=== PATIENT | male | born 1935 | race Caucasian/White ===

== ENCOUNTER 2017-08-19 18:14 | Emergency (ER) | payer BC, OTHER ==
[~2017-08-19] VITALS: Ht 185.4 cm; Wt 79.4 kg
[~2017-08-19 18:14] MED LIST: MULT-2410
[2017-08-19 18:18] VITALS: BP 187/90
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
--- NOTE | 2017-08-19 18:35 | NUR ---
X RAY AT BEDSIDE
--- NOTE | 2017-08-19 19:15 | NUR ---
Pt report given to NYLA NEWTON. Transfer of care at this time.
--- NOTE | 2017-08-19 19:16 | NUR ---
REPORT RECEIVED FROM NYLA CAMPBELL
[2017-08-19] MEDS ORDERED: MORPHINE SULFATE 5 MG/ML VIAL IVP ONE (19:35)
[2017-08-19] MEDS ORDERED: ONDANSETRON 4 MG/2 ML VIAL IVP ONE ×2 (19:35→21:20)
--- NOTE | 2017-08-19 20:39 | NUR ---
CALLED [facility] [phone] REGARDING TRANSFER AND TALKED TO NYLA ARRIAGA
--- NOTE | 2017-08-19 20:55 | NUR ---
PT C/O MILD N/V V.O. ZOFRAN 4MG IVP GIVEN-NADR AT THIS TIME
--- NOTE | 2017-08-19 21:15 | NUR ---
Patient to be transferred to [facility]. Is being transferred due to CONTINUATION OF CARE. Receiving facility has accepting physician and available space. ER physician has signed transfer form. Patient or responsible alliance party has agreed to transfer and signed form. Patient belongings inventoried and will be sent with patient. Copy of nursing notes, lab reports, EKG, Physicians Orders and X-rays to be sent with patient. Report called to LIZA at receiving facility. [facility] ambulance service has been called for transfer. ETA is NOW.
[2017-08-19 21:18] VITALS: BP 113/65
== END 2017-08-19 21:18 | disposition short-term general hospital (02) ==
LOC: MED 18:14
DX: S82.251A Displaced comminuted fracture of shaft of right tibia, initial encounter for closed fracture (principal); S82.451A Displaced comminuted fracture of shaft of right fibula, initial encounter for closed fracture; Z79.899 Other long term (current) drug therapy; V87.8XXA Person injured in other specified noncollision transport accidents involving motor vehicle (traffic), initial encounter; Y93.55 Activity, bike riding; Y92.89 Other specified places as the place of occurrence of the external cause; Y99.8 Other external cause status
CPT/HCPCS: 29505; 73610; 96374; 96375; 96376; 99284; J2270; J2405; Q0092

== ENCOUNTER 2019-02-17 05:34 | Emergency (ER) | payer OTHER ==
[~2019-02-17] VITALS: Ht 185.4 cm; Wt 73.9 kg
[2019-02-17 05:41] VITALS: BP 146/78
--- NOTE | 2019-02-17 05:47 | NUR ---
PT TAKEN TO BED 12
--- NOTE | 2019-02-17 05:51 | NUR ---
Dr. Yoo evaluating patient at bedside.
--- NOTE | 2019-02-17 05:52 | NUR ---
PATIENT PRESENTS TO ED WITH HEMATURIA. PT STATES HE HAD IT FOR ABOUT A WEEK, THEN IT WENT AWAY. DENIES N/V/D; SKIN IS PINK/WARM/DRY; AAOX4 WITH EVEN AND STEADY GAIT; LUNGS CLEAR BL; HR EVEN AND REGULAR; PT DENIES ANY FEVER, CP, SOB, OR COUGH AT THIS TIME; PATIENT STATES PAIN OF 0/10 AT THIS TIME; VSS; PATIENT POSITIONED FOR COMFORT; HOB ELEVATED; BEDRAILS UP X2; BED DOWN. ER MD MADE AWARE OF PT STATUS.
--- NOTE | 2019-02-17 06:19 | NUR ---
PT TAKEN TO CT
[2019-02-17 06:33] LABS: APPEARANCE,URINE CLOUDY (CLEAR); BILIRUBIN,URINE 1+ (NEGATIVE); BLOOD, URINE 3+ (NEGATIVE); COLOR,URINE RED (YELLOW); LEUKOCYTE ESTERASE ,URINE 2+ (NEGATIVE); NITRITE, URINE POSITIVE (NEGATIVE); UGLUCOSE NEGATIVE (NEGATIVE)
--- NOTE | 2019-02-17 06:36 | NUR ---
PT RETURN FROM CT
[2019-02-17 06:52] LABS: BASOPHILS # (AUTO) 0.1 K/uL (0.00-0.22); BASOPHILS % (AUTO) 0.9 % (0.0-2.0); EOSINOPHILS # (AUTO) 0.1 K/uL (0-0.4); EOSINOPHILS % (AUTO) 1.1 % (0.0-4.0); HEMATOCRIT 34.7 % (36-52); HEMOGLOBIN 11.5 g/dL (12.0-18.0); LYMPHOCYTES # (AUTO) 2.4 K/uL (2.0-11.5); MEAN CORPUSCULAR HEMOGLOBIN 31 pg (27-31); MEAN CORPUSCULAR HGB CONC 33 g/dL (33-37); MEAN CORPUSCULAR VOLUME 93.6 fL (80-94); MONOCYTES # (AUTO) 0.9 K/uL (0.8-1.0); MONOCYTES % (AUTO) 14.2 % (1.7-9.3); NEUTROPHILS # (AUTO) 3.1 K/uL (1.8-7.7); NEUTROPHILS % (AUTO) 46.8 % (42.2-75.2); PLATELET COUNT (AUTO) 208 K/uL (140-450); RED CELL DISTRIBUTION WIDTH 12.7 % (11.6-13.7); WHITE BLOOD COUNT (AUTO) 6.6 K/uL (4.8-10.8)
[2019-02-17 06:55] LABS: RBC,URINE TOO NUMEROUS TO COUN /HPF (0-5)
--- NOTE | 2019-02-17 07:09 | NUR ---
ENDORSED PT TO DAY SHIFT RN ISAMAR. MIKE.
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
[2019-02-17 07:24] LABS: ANION GAP 13.5 (8-16); CARBON DIOXIDE 25.6 mmol/L (21-32); CHLORIDE 100 mmol/L (98-107); CREATININE 1.1 mg/dL (0.7-1.3); GLUCOSE 88 mg/dL (74-106); POTASSIUM 4.1 mmol/L (3.5-5.1); SODIUM SERUM 135 mmol/L (136-145); UREA NITROGEN, BLOOD 17 mg/dL (7-18)
[2019-02-17 07:30] LABS: ALBUMIN 3.6 g/dL (3.4-5.0); ASPARTATE AMINOTRANSFERASE 23 U/L (15-37); TOTAL BILIRUBIN 0.5 mg/dL (0.0-1.0)
[2019-02-17 07:31] LABS: PROTHROMBIN TIME 9.9 secs (10.8-13.4)
[2019-02-17] MEDS ORDERED: cefTRIAXone 1,000 MG in LIDOCAINE MPF 1% - 5 mL VIAL 2.1 ML IM ONE (07:55)
[2019-02-17] MEDS ORDERED: cefTRIAXone 1,000 MG VIAL ONE (08:05)
[2019-02-17] MEDS ORDERED: LIDOCAINE MPF 1% 5mL VIAL ONE (08:06)
--- NOTE | 2019-02-17 08:20 | NUR ---
Patient discharged with v/s stable. Written and verbal after care instructions given and explained. Patient alert, oriented and verbalized understanding of instructions. Ambulatory with steady gait. All questions addressed prior to discharge. ID band removed. Patient advised to follow up with PMD. Rx of bactrim ds given. Patient educated on indication of medication including possible reaction and side effects. Opportunity to ask questions provided and answered.
[2019-02-17 08:23] VITALS: BP 150/68
--- NOTE | 2019-02-17 08:24 | NUR ---
ct read and lab results handed to pt for f/u with pmd
== END 2019-02-17 08:20 | disposition home or self-care (01) ==
LOC: MED 05:34
DX: N39.0 Urinary tract infection, site not specified (principal); R31.9 Hematuria, unspecified; F10.229 Alcohol dependence with intoxication, unspecified; Y90.9 Presence of alcohol in blood, level not specified
CPT/HCPCS: 36415; 74176; 80053; 81001; 85025; 85610; 85730; 87086; 96372; 99284; J0696; J2001

== ENCOUNTER 2019-04-12 16:15 | Emergency (ER) | payer OTHER ==
[~2019-04-12] VITALS: Ht 182.9 cm; Wt 74.8 kg
--- NOTE | 2019-04-12 16:18 | NUR ---
PT BIBA BLS TO ER BED 12
--- NOTE | 2019-04-12 16:20 | NUR ---
ERMD AT BEDSIDE EVALUATING PT
[2019-04-12 16:22] VITALS: BP 149/89
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
[2019-04-12 17:49] VITALS: BP 149/89
--- NOTE | 2019-04-12 17:50 | NUR ---
Patient discharged with v/s stable. Written and verbal after care instructions given and explained. Patient verbalized understanding. Ambulatory with steady gait. All questions addressed prior to discharge. Advised to follow up with PMD.
== END 2019-04-12 17:50 | disposition home or self-care (01) ==
LOC: MED 16:15
DX: S83.91XA Sprain of unspecified site of right knee, initial encounter (principal); Z79.899 Other long term (current) drug therapy; W03.XXXA Other fall on same level due to collision with another person, initial encounter; Y93.89 Activity, other specified; Y92.89 Other specified places as the place of occurrence of the external cause; Y99.8 Other external cause status
CPT/HCPCS: 73562; 99283; Q0092

== ENCOUNTER 2020-02-15 16:26 | Emergency (ER) | payer OTHER, BC ==
[~2020-02-15] VITALS: Ht 188 cm; Wt 72.6 kg
[2020-02-15 16:37] VITALS: BP 145/71
--- NOTE | 2020-02-15 16:52 | NUR ---
84 Y/O MALE PRESENTS WITH HEMATURIA + OLIGURIA STARTING THIS MORNING. PT STATES WHEN HE WENT TO URINATE THIS MORNING, THE URINE CAME OUT BRIGHT RIGHT. PT DENIES ANY PAIN, TRAUMA TO PENIS OR RECENT INJURY. DENIES FEVER/CHILLS/BACK PAIN/N/V/D. NO BURNING DURING URINATION REPORTED. AAOX4. RESP EVEN AND UNLABORED. LUNG SOUNDS CLEAR IN BILAT LOBES. ABDOMEN SOFT/NON TENDER. BOWEL SOUNDS NORMOACTIVE. NKA
--- NOTE | 2020-02-15 16:53 | NUR ---
PATIENT UNABLE TO URINATE AT THIS TIME. DIRECTED PATIENT TO PROVIDE URINE SAMPLE WHEN ABLE
--- NOTE | 2020-02-15 17:22 | NUR ---
PT ABLE TO PROVIDE URINE SAMPLE. LAB IS AT BEDSIDE DRAWING BLOOD
[2020-02-15 17:31] LABS: BASOPHILS % (AUTO) 0.4 % (0.0-2.0); EOSINOPHILS # (AUTO) 0.1 K/uL (0-0.4); EOSINOPHILS % (AUTO) 1.5 % (0.0-4.0); HEMATOCRIT 32.1 % (36-52); HEMOGLOBIN 10.3 g/dL (12.0-18.0); LYMPHOCYTES # (AUTO) 2.2 K/uL (2.0-11.5); LYMPHOCYTES % (AUTO) 28.8 % (20.5-51.1); MEAN CORPUSCULAR HEMOGLOBIN 25 pg (27-31); MEAN CORPUSCULAR HGB CONC 32 g/dL (33-37); MEAN CORPUSCULAR VOLUME 78.3 fL (80-94); MONOCYTES # (AUTO) 1.3 K/uL (0.8-1.0); MONOCYTES % (AUTO) 17.5 % (1.7-9.3); NEUTROPHILS # (AUTO) 3.9 K/uL (1.8-7.7); NEUTROPHILS % (AUTO) 51.8 % (42.2-75.2); PLATELET COUNT (AUTO) 241 K/uL (140-450); RED CELL DISTRIBUTION WIDTH 18.9 % (11.6-13.7); WHITE BLOOD COUNT (AUTO) 7.5 K/uL (4.8-10.8)
[2020-02-15 17:40] LABS: APPEARANCE,URINE CLOUDY (CLEAR); BILIRUBIN,URINE NEGATIVE (NEGATIVE); BLOOD, URINE 3+ (NEGATIVE); COLOR,URINE RED (YELLOW); LEUKOCYTE ESTERASE ,URINE NEGATIVE (NEGATIVE); NITRITE, URINE NEGATIVE (NEGATIVE); UGLUCOSE NEGATIVE (NEGATIVE)
[2020-02-15 17:41] LABS: ANION GAP 13.2 (8-16); CARBON DIOXIDE 25.8 mmol/L (21-32); CHLORIDE 98 mmol/L (98-107); CREATININE 1.3 mg/dL (0.6-1.3); GLUCOSE 87 mg/dL (74-106); SODIUM SERUM 133 mmol/L (136-145); UREA NITROGEN, BLOOD 21 mg/dL (7-18)
[2020-02-15 17:41] LABS: RBC,URINE TOO NUMEROUS TO COUN /HPF (0-5); WBC,URINE 0 /HPF (0-5)
[2020-02-15 18:36] VITALS: BP 148/57
== END 2020-02-15 18:20 | disposition home or self-care (01) ==
LOC: MED 16:26
DX: R31.9 Hematuria, unspecified (principal); Z79.899 Other long term (current) drug therapy
CPT/HCPCS: 36415; 80048; 81001; 85025; 87086; 99283

== ENCOUNTER 2020-08-04 16:52 | Emergency (ER) | payer OTHER, BC ==
[~2020-08-04] VITALS: Ht 185.4 cm; Wt 68.0 kg
[2020-08-04 16:56] VITALS: BP 109/50
[2020-08-04] MEDS: KETOROLAC 60 MG/2 ML VIAL IM ONE (17:58)
[2020-08-04 18:15] VITALS: BP 109/50
== END 2020-08-04 18:14 | disposition home or self-care (01) ==
LOC: MED 16:52
DX: S93.401A Sprain of unspecified ligament of right ankle, initial encounter (principal); M79.662 Pain in left lower leg; Z79.899 Other long term (current) drug therapy; W19.XXXA Unspecified fall, initial encounter; Y93.89 Activity, other specified; Y92.89 Other specified places as the place of occurrence of the external cause; Y99.8 Other external cause status
CPT/HCPCS: 73562; 73590; 96372; 99284; J1885

== ENCOUNTER 2020-08-06 14:21 | Emergency (ER) | payer OTHER, BC ==
[~2020-08-06] VITALS: Ht 185.4 cm; Wt 72.6 kg
[2020-08-06 14:45] VITALS: BP 107/72
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
--- NOTE | 2020-08-06 16:00 | NUR ---
PT STATES UNABLE TO PROVIDE URINE; DR. PETERSON MADE AWARE
--- NOTE | 2020-08-06 16:02 | NUR ---
DR. PETERSON EVALUATING PT AT BEDSIDE
--- NOTE | 2020-08-06 16:10 | NUR ---
PER DR. PETERSON, MAY DISCHARGE NOW WITHOUT GETTING URINE SAMPLE.
[2020-08-06 16:13] VITALS: BP 124/69
--- NOTE | 2020-08-06 16:13 | NUR ---
Patient discharged with v/s stable. Written and verbal after care instructions given and explained. Patient verbalized understanding. Wheel Chair Assisted to lobby; patient will be picked up by daughter. All questions addressed prior to discharge. Advised to follow up with PMD.
== END 2020-08-06 16:13 | disposition home or self-care (01) ==
LOC: MED 14:21
DX: R55 Syncope and collapse (principal); Z79.899 Other long term (current) drug therapy
CPT/HCPCS: 93005; 99283

== ENCOUNTER 2021-09-29 19:45 | Emergency (ER) | payer OTHER, BC ==
[~2021-09-29] VITALS: Ht 185.4 cm; Wt 74.8 kg
[~2021-09-29 19:45] MED LIST changes: +FER325 PO; +FOLI1TAB90 PO; +PANT40EC56 PO; +SUCR1TAB56 PO; +THIA-34 PO
[2021-09-29 19:53] VITALS: BP 168/79
[2021-09-29] MEDS ORDERED: HYDROcodone/APAP 5/325 MG 1 TAB TAB PO ONE (20:05)
[2021-09-29] MEDS ORDERED: LID5T TP (21:22)
[2021-09-29 21:28] VITALS: BP 132/72
--- NOTE | 2021-09-29 21:31 | NUR ---
PATIENT ALERT ORIENTED NOT COMPLAINING OF PAIN AT THIS TIME VITALS SIGNS IN NORMAL LIMITS HIS DAUGHTER AT THE BEDSIDE ALL THE DC INSTRUCTION GAVE AND EXPLAINED WE RECOMMEND TO WAIT FOR XR RESULT BUT PATIENT REFUSED //Giovany RN
== END 2021-09-29 21:25 | disposition home or self-care (01) ==
LOC: MED 19:45
DX: M54.50 Low back pain, unspecified (principal); M25.552 Pain in left hip; Z79.899 Other long term (current) drug therapy; W01.198A Fall on same level from slipping, tripping and stumbling with subsequent striking against other object, initial encounter; Y93.89 Activity, other specified; Y92.89 Other specified places as the place of occurrence of the external cause; Y99.8 Other external cause status
CPT/HCPCS: 72100; 73502; 99284